=== PATIENT | male | born 1975 | race Caucasian/White ===

== ENCOUNTER 2016-09-15 08:01 | Day surgery (SDC) | payer OTHER, BC ==
[2016-09-14 12:08] VITALS: BMI 29.1
[2016-09-15] MEDS ORDERED: PROMETHAZINE HCL 25 MG/1 ML VIAL IVPUSH PRN (08:47)
[2016-09-15] MEDS ORDERED: ONDANSETRON 4 MG/2 ML VIAL IVPUSH PRN (08:47)
[2016-09-15] MEDS ORDERED: LACTATED RINGERS SOLUTION 1,000 ML IV SCH (09:00)
[2016-09-15] MEDS ORDERED: PROPOFOL 20 ML ONE (09:07)
[2016-09-15] MEDS ORDERED: MIDAZOLAM HCL 2 MG/2 ML SINGLE DOSE VIAL ONE ×3 (09:07→09:08)
[2016-09-15] MEDS ORDERED: DEXAMETHASONE SOD PHOSPHATE/PF 10 MG/ML SDV ONE (09:08)
[2016-09-15] MEDS ORDERED: ROPIVACAINE HCL 0.5% 30ML VIAL ONE (09:08)
[2016-09-15] MEDS ORDERED: ceFAZolin SODIUM 1 GM VIAL ONE (10:05)
[2016-09-15] MEDS ORDERED: LIDOCAINE HCL/PF 2% SDV 5ML VIAL ONE (10:05)
[2016-09-15] MEDS ORDERED: ONDANSETRON 4 MG/2 ML VIAL ONE (10:21)
[2016-09-15] MEDS ORDERED: KETOROLAC TROMETHAMINE 30 MG/1 ML VIAL ONE (10:44)
[2016-09-15] MEDS ORDERED: ACETAMINOPHEN 1000 MG/100 ML VIAL (NON FORMULARY) IVPB ONE (11:07)
--- NOTE | 2016-09-15 13:15 | OP ---
DATE OF OPERATION: PREOPERATIVE DIAGNOSIS: Left patella tendon rupture. POSTOPERATIVE DIAGNOSIS: Left patella tendon rupture. PROCEDURE: Left patella tendon repair. SURGICAL ATTENDING: Adam Alas MD PHOTO FINISH PHOTOGRAPHER: PETERSON Grover ANESTHESIA: Regional and LMA. CLOSURES: A No. 2 FiberWire for patella tendon, No. 1 Vicryl for retinaculum, 2-0 for subcuticular, 3-0 Monocryl subcuticular, skin glue for skin. ESTIMATED BLOOD LOSS: Less than 100 mL. COMPLICATIONS: None. CONDITION: To recovery room in stable condition. DESCRIPTION OF PROCEDURE: The patient was taken to the operating room on September 15, 2016. Regional and general anesthesia was administered by the anesthesiologist. IV Kefzol was administered prophylactically prior to this case. The patient's left lower extremity was prepped and draped in the usual sterile fashion. A 10-cm longitudinal midline incision was centered over the patella. It was incised. Hemostasis achieved with Bovie cautery. Dissection was carried down to the level of the extensor mechanism. It was visualized medial to lateral to perform the procedure. An obvious complete rupture of the patellar tendon off the inferior pole of the patella with fat and clot from around the edge of the patella tendon was debrided. No. 2 FiberWire was woven into the patella tendon using a locking baseball stitch up and down the sides and the middle part of the tendon. Two limbs would be centrally, one laterally, and one medially. The inferior pole of the patella was rongeured to get a bleeding surface. Three parallel drill holes were drilled and then using a was used to shuttle sutures to the superior pole of the patella, 2 through the central pole, 1 through the medial and lateral holes. Each one of the central sutures were passed underneath the quadriceps tendon to the same level to either the medial and lateral suture. With the knee in extension, the sutures were tied snugly to the superior pole of the patella. The retinaculum was then closed using No.1 Vicryl interrupted suture both medial and laterally. There was some residual patellar tendon that was still attached to the inferior pole of the patella, which was anterior, which was also stitched back to the remaining patella tendon achieving an excellent repair. The wound was irrigated with copious amounts of irrigation. The subcuticular was closed with 2-0 Vicryl and 3-0 Monocryl subcuticular and skin glue for skin. Sterile pressure dressing followed by knee immobilizer was applied. The patient was awakened from anesthesia and transferred to the recovery room in stable condition. No complications. Sindy [id number]
[2016-09-15 15:19] VITALS: TEMP 97.9
[2016-09-15 15:26] VITALS: BP 125/78; PULSE 75
--- NOTE | 2016-09-15 15:40 | HP ---
History & Physical Update - History History: No Change - Physical Physical: No Change - Assessment Assessment: No Change - Plan Plan: No Change
--- NOTE | 2016-09-15 15:41 | OP ---
Operative Note - Note: Operative Date: 09/15/16 Pre-Operative Diagnosis: Left patellar tendon rupture Operation: Left patellar tendon repair Post-Operative Diagnosis: Same as Pre-op Surgeon: Adam Alas Dam Operator: Honorio Rossi Anesthesiologist/INTERNET MARKETER: Donovan Perales Anesthesia: General Estimated Blood Loss (mls): 20 Fluid Volume Replaced (mls): 800 Operative Report Dictated: Yes
--- NOTE | 2016-09-15 15:42 | SURG ---
Surgery Racetr[facility] Steward Note Racetrack Steward: Honorio Rossi PA-C Date of Service: 09/15/16 Diagnosis: Left patellar tendon rupture Procedure: Left patellar tendon repair I was present for the entirety of the operative procedure. For further detail, please refer to operative report. Visit type - Case Type Case Type: Scheduled Admission - New patient This patient is new to me today: Yes Date on this admission: 09/15/16
== END 2016-09-15 13:30 | disposition home or self-care (01) ==
LOC: FASU 08:01
PROVIDERS: ATTEND Orthopaedic Surgery
PROC: 0LQR0ZZ Repair Left Knee Tendon, Open Approach (ICD-10-PCS; principal; 2016-09-15 10:15)
DX: M66.862 Spontaneous rupture of other tendons, left lower leg (principal)
CPT/HCPCS: 94760; 97116-GP